=== PATIENT | female | born 1955 | race Caucasian/White ===

== ENCOUNTER 2020-05-18 02:39 | Emergency (ER) | payer MEDICARE, MEDICAID ==
[~2020-05-18] VITALS: Ht 175.3 cm; Wt 90.0 kg
[~2020-05-18 02:39] MED LIST: AMLO2.5T2 PO; ASCO-103 PO; ASPI-1009 PO; ATOR20TA PO; BUDE3CAP15 PO; CHLO25TA2 PO; CYAN500T46 PO; ESCI20TA45 PO; EST1T PO; LIDO700A22 TP; LOSA50TA3 PO; MECL-159 PO; METH-603 PO; METO100T14 PO; OMEP40CA PO; VAL5T PO
[2020-05-18 03:11] VITALS: BP 216/103
== END 2020-05-18 03:15 | disposition home or self-care (01) ==
LOC: ER 02:39
DX: M25.561 Pain in right knee (principal); G43.909 Migraine, unspecified, not intractable, without status migrainosus; E78.00 Pure hypercholesterolemia, unspecified; I10 Essential (primary) hypertension; G89.29 Other chronic pain; F32.9 Major depressive disorder, single episode, unspecified; Z98.890 Other specified postprocedural states; Z60.2 Problems related to living alone; Z88.8 Allergy status to other drugs, medicaments and biological substances; Z79.82 Long term (current) use of aspirin; Z79.899 Other long term (current) drug therapy
CPT/HCPCS: 99281

== ENCOUNTER 2020-09-17 23:14 | Emergency (ER) | payer MEDICARE, MEDICAID ==
[~2020-09-17] VITALS: Ht 170.2 cm; Wt 81.8 kg
--- NOTE | 2020-09-17 23:27 | NUR ---
pt was waiting in the covid tent. for triage bc she reported to the screener she was sob . When this recorder arrived to asssess pt , She presented angry that she was sitting in the covid tent . i explained to pt that the facility has patients wait outside if they have covid symptoms . pt was sitting in chair with threee warm blankets . i asked pt what her chief complaint was for her visit and she reported abdominal pain . i spoke with my charge loader and patient was brought to room 7 as a stright back .
[2020-09-17] MEDS ORDERED: normal saline 1000ML IV soln IVB ONE (23:50)
[2020-09-17] MEDS ORDERED: ondansetron/PF 4mg/2ml inj IV ONE (23:50)
[2020-09-18] MEDS: morphine 4 MG/ML inj SYRINge IV PRN ×2 (00:09→00:34)
[2020-09-18 00:24] LABS: HEMOGLOBIN 13.6 g/dl (12.0-16.0); MEAN CORPUSCULAR HEMOGLOBIN 24.8 PG (27.0-31.0)
[2020-09-18 00:26] LABS: BASOPHILS # (AUTO) 0.1 X10'3 (0-0.2); EOSINOPHILS # (AUTO) 0.2 X10'3 (0-0.9); EOSINOPHILS % (AUTO) 1.7 % (0-6); HEMATOCRIT 41.7 % (35.0-45.0); LYMPHOCYTES # (AUTO) 1.2 X10'3 (1.1-4.8); LYMPHOCYTES % (AUTO) 11.5 % (21-51); MEAN CORPUSCULAR HGB CONC 32.6 g/dL (33.0-36.5); MEAN CORPUSCULAR VOLUME 75.9 FL (78-98); MEAN PLATELET VOLUME 7.8 FL (7.4-10.4); MONOCYTES # (AUTO) 0.6 X10'3 (0-0.9); MONOCYTES % (AUTO) 5.6 % (2-12); NEUTROPHILS # (AUTO) 8.4 X10'3 (1.8-7.7); NEUTROPHILS % (AUTO) 80.2 % (42-75); PLATELET COUNT 310 X10'3 (140-440); RED BLOOD COUNT 5.49 X10'6 (4.20-5.60); WHITE BLOOD COUNT 10.5 X10'3 (4.5-11.0)
[2020-09-18 00:35] LABS: ALANINE AMINOTRANSFERASE 143 U/L (12-78); ALBUMIN 3.8 G/DL (3.4-5.0); ALKALINE PHOSPHATASE 120 IU/L (46-116); ANION GAP 10 (8-16); ASPARTATE AMINO TRANSFERASE 239 U/L (10-37); BILIRUBIN,TOTAL 2.1 MG/DL (0.1-1.0); BLOOD UREA NITROGEN 13 MG/DL (7-18); BUN/CREATININE RATIO 14.9 (6.6-38.0); CALCIUM 8.8 MG/DL (8.5-10.1); CHLORIDE 103 MMOL/L (99-107); CREATININE 0.87 MG/DL (0.40-0.90); GLUCOSE 120 MG/DL (70-104); LIPASE 369 U/L (73-393); SODIUM 140 MMOL/L (135-145); TOTAL CARBON DIOXIDE 27.3 MMOL/L (24-32); TOTAL PROTEIN 7.7 G/DL (6.4-8.2); eGFR 66 ML/MIN
[2020-09-18 00:38] LABS: POTASSIUM 2.8 MMOL/L (3.5-5.1)
[2020-09-18] MEDS ORDERED: potassium Cl 10 mEq/100mL bag IV ONE ×2 (00:45→02:00)
[2020-09-18 01:11] LABS: CLARITY,URINE CLEAR (Clear); COLOR,URINE AMBER (Yellow); GLUCOSE, URINE 100 mg/dl (Neg); KETONES,URINE NEGATIVE (Neg); LEUKOCYTE ESTERASE ,URINE MODERATE (Neg); NITRITES, URINE NEGATIVE (Neg); OCCULT BLOOD,URINE NEGATIVE (Neg); PROTEIN,URINE TRACE mg/dl (Neg); UROBILINOGEN,URINE >=8.0 E.U/dL (0.2-1.0)
[2020-09-18 01:16] LABS: UA COLLECTION TYPE CLN CATCH MIDSTREAM
[2020-09-18 01:20] LABS: BACTERIA,URINE 2+ /HPF (Neg); MUCUS STRANDS MODERATE /LPF (Neg); RBC,URINE NONE SEEN /HPF (0-2); SQUAMOUS EPITHELIAL CELL,UR MODERATE /LPF (FEW); WBC CLUMPS,URINE FEW /HPF (NEGATIVE)
[2020-09-18] MEDS ORDERED: fentaNYL/PF 50MCG/1 ML 2ML syringe IV ONE ×2 (02:40→05:20)
--- NOTE | 2020-09-18 03:08 | NUR ---
Upon checking on Pt she stated "It's too loud in here. I can't stand all this cackling and background noise. There are sick patient's here. What about that patient over there, and that patient over there. This is a hospital not a bar! We need to rest." Pt room door closed.
[2020-09-18] MEDS ORDERED: mag hydrox/Alum hydrox/simeth 30ml oral suspension PO PRN (04:55)
[2020-09-18] MEDS ORDERED: ondansetron/PF 4mg/2ml inj IV PRN (04:55)
[2020-09-18] MEDS ORDERED: HYDROcodone/acetaminophen 5mg/325mg tablet PO PRN (04:55)
[2020-09-18] MEDS ORDERED: HYDROcodone/acetaminophen 10/325mg tab PO PRN (04:55)
[2020-09-18] MEDS ORDERED: magnesium hydroxide 30ml (MOM) UD suspension PO PRN (04:55)
[2020-09-18] MEDS ORDERED: acetaminophen 325mg tablet PO PRN ×2 (04:55)
[2020-09-18] MEDS ORDERED: metoclopramide 5 mg/ml inj IV PRN (04:55)
[2020-09-18] MEDS ORDERED: magnesium Cl slow-release 64mg tablet PO PRN (04:55)
[2020-09-18] MEDS ORDERED: magnesium 4gm in 100ml NS 100 ML IV PRN (04:55)
[2020-09-18] MEDS ORDERED: potassium Cl 20 mEq SR tablet PO PRN ×2 (04:55)
[2020-09-18] MEDS ORDERED: potassium CL 10mEq/100ml bag 100 ML IV PRN ×2 (04:55)
[2020-09-18] MEDS ORDERED: magnesium 2GM in 50ml NS 50 ML IV PRN (04:55)
[2020-09-18] MEDS ORDERED: HYDROmorphone inj. 0.5 MG/0.5 ML DISP.SYRIN IV PRN (04:55)
[2020-09-18] MEDS ORDERED: normal saline 1000ml 1,000 ML IV SCH (04:55)
[2020-09-18] MEDS ORDERED: ondansetron/PF 4mg/2ml inj IV ONE (05:20)
--- NOTE | 2020-09-18 05:30 | NUR ---
Patient approached nurses station visually upset stating "I want to get out of here right now! This is crazy. The ER is not a bar where people can visit all night long. I am sick and so are these people. Get me out of here right now!" Patient taken from bed 7 to bed 11 where door was closed. Pt assisted to position of comfort, helped back into a gown and reassured it would be away from any noise from the nurses station. Patient stated she was thankful and seemed more at ease.
--- NOTE | 2020-09-18 06:30 | NUR ---
ASSUMED CAER OF PT, REVIEWED INITIAL ASSESSEMNT, PAIN IS UNDERCONTROL AT THIS TIME, PT SLEEPNIG, IN NO APPRENT DISTRESS, CALL LIGHT IN REACH.
--- NOTE | 2020-09-18 06:37 | NUR ---
Patient now resting comfortably
[2020-09-18] MEDS ORDERED: K and/or MAG REPLACEMENT MC SCH (08:00)
--- NOTE | 2020-09-18 08:24 | NUR ---
Amadeo broussard in [facility] - 09/18/20 at 0825 by BRI NUC MED NURSE AT [facility]
[2020-09-18 09:31] LABS: PARTIAL THROMBOPLASTIN TIME 26 SECONDS (22-32)
--- NOTE | 2020-09-18 10:48 | NUR ---
Pt is angry, verbalized frustration at the delay for obtaining an admission bed assignment. Pt reports she feels like she is not getting the care she needs, has been here for 13 hours and is not having pain control at this time. Spoke with Charge nurse about the patient's situation and needs to leave AMA. Jane Nunes, is attempting to help explain the situation and reason for delay to the patient.
[2020-09-18 10:50] VITALS: BP 186/90
--- NOTE | 2020-09-18 11:04 | NUR ---
spoke with dr. south regarding pt's uncontrolled pain, received verbal order for 1mg dilaudid q4hr prn pain
--- NOTE | 2020-09-18 11:15 | NUR ---
Spoke with Dr. Rios about the patient's continued desire to leave AMA despite the changes that have been made.
--- NOTE | 2020-09-18 11:53 | NUR ---
Pt discontinued her IV in the presence of this nurse, cath tip intact, dressing applied, no complications noted. Pt refused to stay long enough to get admission bed and receive further treatment. Dr. Rios made aware of the patient leaving. Pt reports she is walking home, is aware of the instructions to not drive after the opiate pain medications she has received. Pt was unwilling to have vitals rechecked prior to leaving AMA. Charge Nurse Leslie Gould RN spoke with the patient prior to leaving AMA as well and was unwilling to sign AMA paperwork.
[2020-09-18] MEDS ORDERED: HYDROmorphone 1 mg/ml syringe IV ONE (12:00)
--- NOTE | 2020-09-18 12:06 | NUR ---
Spoke with live in housekeeper, Miriam, regarding an inpatient room assignment for patient at approx. [phone]. I was given the room assignment of 3046B at which I hung up with miriam and when straight to patients room to discuss the inpatient room assignment with patient. Patient was walking out of room at the time. NIKOLE Barros stated that she just ripped out her IV in front of me and walked out of room. I spoke with patient in hallway and stated that she had an inpatient room assignment and would be transferred to room 3046B. Patient stated, "I don't care I'm leaving." I stated that I was sorry for the long wait, but would like her to stay and that we've done everything we can to help her be comfortable this morning. Patient states while walking away, "No, you've done nothing for me." I disagreed and requested patient sign an AMA form. Patient stated, "I'm not signing anything for you." I stated that I would make a statement in regardings to the refusal and ushered patient to exit through lobby. Fiorella AGUSTIN notified Dr. Rios.
[2020-09-18] MEDS ORDERED: temazepam 15mg capsule PO PRN (21:00)
== END 2020-09-18 11:55 | disposition left against medical advice (07) ==
LOC: ER 23:15 → UNDOADMIN 09-18 04:54 → ED HOLD 09-18 04:54 → UNDODISIN 09-18 11:55
DX: K80.70 Calculus of gallbladder and bile duct without cholecystitis without obstruction (principal); R74.8 Abnormal levels of other serum enzymes; R74.01 Elevation of levels of liver transaminase levels; E87.6 Hypokalemia
CPT/HCPCS: 36415; 74176; 76700; 80053; 81001; 83690; 85025; 85610; 85730; 87088; 96361; 96374; 96375; 96376; 99285; J1170; J2270; J2405; J3010; J3480; J7030; G0378